=== PATIENT | female | born 1980 | race Caucasian/White ===

== ENCOUNTER 2020-06-16 21:06 | Emergency (ER) | payer OTHER ==
[2020-06-16] MEDS ORDERED: Erythromycin Base 0.5% Oint 1 GM TUBE ONE (22:09)
== END 2020-06-16 22:15 | disposition home or self-care (01) ==
LOC: CSHERS 21:06
DX: B00.59 Other herpesviral disease of eye (principal)
CPT/HCPCS: 99283

== ENCOUNTER 2020-06-18 02:22 | Emergency (ER) | payer OTHER ==
[2020-06-18] MEDS ORDERED: Morphine 4 MG/ML VIAL ONE (03:22)
[2020-06-18] MEDS ORDERED: Clindamycin 150 MG CAP ONE (03:23)
[2020-06-18] MEDS ORDERED: diphenhydrAMINE 25 MG CAP ONE (03:23)
== END 2020-06-18 03:55 | disposition home or self-care (01) ==
LOC: CSHERS 02:22
DX: L03.213 Periorbital cellulitis (principal); M79.7 Fibromyalgia; F17.290 Nicotine dependence, other tobacco product, uncomplicated; Z79.899 Other long term (current) drug therapy
CPT/HCPCS: 96372; 99283; J2270; Q0163

== ENCOUNTER 2020-07-24 06:28 | Emergency (ER) | payer OTHER ==
[2020-07-24] MEDS ORDERED: Morphine 4 MG/ML VIAL ONE (07:30)
[2020-07-24] MEDS ORDERED: Ondansetron PF 4 MG/2 ML Vial ONE (07:30)
[2020-07-24] MEDS ORDERED: Lidocaine/Transparent Dressing 1 EACH KIT ONE (07:30)
[2020-07-24 07:32] LABS: Bilirubin Neg (Negative); Blood, Urine Negative (Negative); Clarity Clear (Clear); Glucose, Urine (Dipstick) Normal (Negative); Ketone, Urine Negative (Negative); Leukocyte Negative (Negative); Nitrite Negative (Negative); Protein, Urine (Dipstick) Negative (Neg-Trace); Urobilinogen Normal mg/dL (Less than 2)
[2020-07-24 07:37] LABS: Pregnancy Test - Urine (BHCG) Negative (Negative)
[2020-07-24 07:38] LABS: Pregu Control Background? CLEAR/WHITE (CLR/WHITE); Pregu Control Bar Appear? YES (CONTROL BAR)
[2020-07-24] MEDS ORDERED: diphenhydrAMINE 50 MG/ML VIAL ONE (08:15)
[2020-07-24 08:29] LABS: ALT (SGPT) 22 U/L (8-55); AST (SGOT) 24 U/L (5-34); Albumin 3.5 g/dL (3.5-5.0); Alkaline Phosphatase 68 U/L (40-110); Anion Gap 19 mmol/L (10-20); BUN (Urea Nitrogen) 5 mg/dL (7.0-18.7); Bilirubin, Total 0.5 mg/dL (0.2-1.2); Calc. Creatinine Clearance 0 mL/min (70-130); Calcium 9.2 mg/dL (7.8-10.44); Carbon Dioxide 21 mmol/L (22-29); Chloride 103 mmol/L (98-107); Globulin 3.4 g/dL (2.4-3.5); Glucose 90 mg/dL (70-105); Potassium 4.8 mmol/L (3.5-5.1); Protein, Total 6.9 g/dL (6.0-8.3); Sodium 138 mmol/L (136-145)
[2020-07-24] MEDS ORDERED: Midazolam HCl 2 mg/2 ml Vial ONE (08:54)
[2020-07-24] MEDS ORDERED: Lidocaine 1% w/Epinephrine 1:100K 20 ML VIAL ONE (08:54)
[2020-07-24 09:04] LABS: #Eosinphils 0.3 10x3/uL (0.0-0.5); #Monocytes 0.8 10x3/uL (0.0-1.1); #Neutrophils 10.9 10x3/uL (1.5-8.4); %Basophils 0.3 % (0.0-2.0); %Eosinophils 2.3 % (0.0-6.0); %Lymphocytes 14.9 % (18.0-47.0); %Monocytes 5.4 % (0.0-10.0); %Neutrophils 76.6 % (40.0-75.0); Hemoglobin 11.3 g/dL (12.0-15.5); Mean Corpuscular HGB CONC 32.1 g/dL (32.0-36.0); Mean Corpuscular Hemoglobin 28.1 pg (27.0-33.0); Mean Corpuscular Volume 87.6 fl (81.6-98.3); Mean Platelet Volume 8.5 fl (7.4-10.4); Platelet Count 280 10x3/uL (150-450); RBC Distribution Width 13.6 % (11.5-14.5); Red Blood Cell (RBC) Count 4.02 10x6/uL (3.90-5.03); White Blood Cell (WBC) Count 14.2 10x3/uL (3.5-10.5)
[2020-07-24] MEDS ORDERED: HYDROmorphone 0.5 MG/0.5 ML SYRINGE ONE (09:15)
== END 2020-07-24 10:08 | disposition home or self-care (01) ==
LOC: CSHERS 06:28
DX: N75.1 Abscess of Bartholin's gland (principal); M79.7 Fibromyalgia; K50.90 Crohn's disease, unspecified, without complications; Z79.899 Other long term (current) drug therapy
CPT/HCPCS: 36415; 56420; 74177; 80053; 81003; 81025; 85025; 87070; 87077; 87186; 87205; 93005; 93010; 96374; 96375; J1170; J1200; J2250; J2270; J2405

== ENCOUNTER 2020-07-25 10:00 | Observation (INO) | payer OTHER ==
[2020-07-25] MEDS ORDERED: Promethazine HCl 25 MG/ML VIAL ONE (10:38)
[2020-07-25] MEDS ORDERED: Ketorolac Tromethamine 30 MG/ML VIAL ONE (10:38)
[2020-07-25] MEDS ORDERED: Morphine 4 MG/ML VIAL ONE ×2 (11:19→14:19)
[2020-07-25] MEDS ORDERED: Haloperidol Lactate 5 MG/ML VIAL ONE (12:52)
[2020-07-25] MEDS ORDERED: Ondansetron ODT 4 MG TAB PO PRN (14:10)
[2020-07-25] MEDS ORDERED: Promethazine HCl 25 MG SUPP PR PRN (14:15)
[2020-07-25] MEDS ORDERED: Sodium Chloride 0.9% 1,000 ML IV SCH (14:45)
[2020-07-25 14:54] LABS: #Eosinphils 0.1 10x3/uL (0.0-0.5); #Monocytes 0.7 10x3/uL (0.0-1.1); #Neutrophils 9.2 10x3/uL (1.5-8.4); %Basophils 0.3 % (0.0-2.0); %Eosinophils 0.5 % (0.0-6.0); %Monocytes 6.1 % (0.0-10.0); %Neutrophils 81.7 % (40.0-75.0); Hemoglobin 12.3 g/dL (12.0-15.5); Mean Corpuscular HGB CONC 33.2 g/dL (32.0-36.0); Mean Corpuscular Hemoglobin 28.1 pg (27.0-33.0); Mean Corpuscular Volume 84.9 fl (81.6-98.3); Mean Platelet Volume 8.4 fl (7.4-10.4); Platelet Count 276 10x3/uL (150-450); Red Blood Cell (RBC) Count 4.37 10x6/uL (3.90-5.03); White Blood Cell (WBC) Count 11.2 10x3/uL (3.5-10.5)
[2020-07-25 14:57] LABS: ALT (SGPT) 21 U/L (8-55); AST (SGOT) 18 U/L (5-34); Albumin 3.5 g/dL (3.5-5.0); Alkaline Phosphatase 73 U/L (40-110); Anion Gap 16 mmol/L (10-20); BUN (Urea Nitrogen) 5 mg/dL (7.0-18.7); Bilirubin, Total 0.5 mg/dL (0.2-1.2); Calc. Creatinine Clearance 0 mL/min (70-130); Calcium 9.4 mg/dL (7.8-10.44); Carbon Dioxide 25 mmol/L (22-29); Chloride 100 mmol/L (98-107); Globulin 3.5 g/dL (2.4-3.5); Glucose 94 mg/dL (70-105); Potassium 3.9 mmol/L (3.5-5.1); Sodium 137 mmol/L (136-145)
[2020-07-25 14:59] LABS: Lactic Acid 1.3 mmol/L (0.5-2.2)
[2020-07-25] MEDS ORDERED: PENTOSAN POLYSULFATE SODIUM 100 MG PO SCH (15:00)
[2020-07-25 15:05] LABS: BHCG - Serum Negative (NEGATIVE); Pregs Control Background? CLEAR/WHITE (CLR/WHITE); Pregs Control Bar Appear? YES (CONTROL BAR)
[2020-07-25] MEDS ORDERED: Gabapentin 300 MG CAP PO SCH ×4 (17:00→21:00)
[2020-07-25] MEDS: Morphine 4 MG/ML VIAL SLOW IVP PRN ×2 (17:04→22:02)
[2020-07-25 17:35] VITALS: BMI 31.5
[2020-07-25] MEDS ORDERED: Acetaminophen 500 MG TAB PO PRN (17:46)
[2020-07-25] MEDS ORDERED: Clindamycin/D5W 900 mg/50 ml Premix Bag ONE (18:09)
[2020-07-25] MEDS: Clindamycin/D5W 900 MG in Premix Bag 1 BAG IVPB SCH (18:25)
[2020-07-25] MEDS ORDERED: Amitriptyline HCl 10 MG TAB PO SCH (21:00)
[2020-07-25] MEDS ORDERED: diphenhydrAMINE 50 MG/ML VIAL IVP SCH (22:00)
[2020-07-25] MEDS: diphenhydrAMINE 50 MG CAP PO PRN (22:03)
[2020-07-26] MEDS: Morphine 4 MG/ML VIAL SLOW IVP PRN ×2 (02:42→07:11)
[2020-07-26] MEDS: Clindamycin/D5W 900 MG in Premix Bag 1 BAG IVPB SCH (03:02)
[2020-07-26] MEDS: diphenhydrAMINE 50 MG CAP PO PRN (03:04)
[2020-07-26 04:50] LABS: SARS-CoV-2 PCR by NAA Not Detected (NotDetected)
[2020-07-26 07:31] LABS: #Eosinphils 0.5 10x3/uL (0.0-0.5); #Monocytes 0.7 10x3/uL (0.0-1.1); #Neutrophils 3.3 10x3/uL (1.5-8.4); %Basophils 0.6 % (0.0-2.0); %Eosinophils 7.7 % (0.0-6.0); %Monocytes 9.2 % (0.0-10.0); %Neutrophils 46.9 % (40.0-75.0); Hemoglobin 11.1 g/dL (12.0-15.5); Mean Corpuscular HGB CONC 32.7 g/dL (32.0-36.0); Mean Corpuscular Volume 85.6 fl (81.6-98.3); Mean Platelet Volume 8.9 fl (7.4-10.4); Platelet Count 230 10x3/uL (150-450); Red Blood Cell (RBC) Count 3.96 10x6/uL (3.90-5.03)
[2020-07-26] MEDS ORDERED: HYDROcodone/Acetaminophen 5/325 mg Tablet PO SCH (07:33)
[2020-07-26] MEDS ORDERED: HYDROcodone/Acetaminophen 10/325 mg Tablet PO SCH (07:45)
[2020-07-26 07:48] LABS: Anion Gap 17 mmol/L (10-20); BUN (Urea Nitrogen) 6 mg/dL (7.0-18.7); Calc. Creatinine Clearance 169 mL/min (70-130); Calcium 8.7 mg/dL (7.8-10.44); Carbon Dioxide 20 mmol/L (22-29); Chloride 105 mmol/L (98-107); Glucose 103 mg/dL (70-105); Potassium 4.3 mmol/L (3.5-5.1); Sodium 138 mmol/L (136-145)
[2020-07-26 08:01] VITALS: BP 126/81; TEMP 97.1
[2020-07-26] MEDS ORDERED: Non-Formulary Medication 1 EACH (Citalopram [Celexa] 10 MG Tab) PO SCH (09:00)
[2020-07-26] MEDS ORDERED: Gabapentin 300 MG CAP PO SCH ×2 (09:00→17:00)
[2020-07-26] MEDS ORDERED: CITALOPRAM 20 MG PO SCH (09:00)
== END 2020-07-26 09:40 | disposition home or self-care (01) ==
LOC: CSHERS 10:00 → INTOOBSV 16:48 → CSHPED 16:48
PROVIDERS: ADMIT Obstetrics & Gynecology; ATTEND Obstetrics & Gynecology
DX: N76.4 Abscess of vulva (principal); Z79.899 Other long term (current) drug therapy; K50.90 Crohn's disease, unspecified, without complications; N30.10 Interstitial cystitis (chronic) without hematuria; M79.7 Fibromyalgia; Z90.49 Acquired absence of other specified parts of digestive tract; F32.9 Major depressive disorder, single episode, unspecified; Z20.822 Contact with and (suspected) exposure to COVID-19
CPT/HCPCS: 36415; 80048; 80053; 83605; 84703; 85025; 87040; 87149; 87635; 96374; 96375; 96376; 99284; G0378; J1630; J1885; J2270; J2550; J3490; U0003; U0005

== ENCOUNTER 2020-11-23 18:26 | Emergency (ER) | payer OTHER ==
[2020-11-23] MEDS ORDERED: Morphine 4 MG/ML VIAL ONE (20:35)
[2020-11-23 20:39] LABS: #Basophils 0.1 10x3/uL (0.0-0.2); #Eosinphils 0.5 10x3/uL (0.0-0.5); #Monocytes 0.6 10x3/uL (0.0-1.1); #Neutrophils 5.6 10x3/uL (1.5-8.4); %Basophils 0.6 % (0.0-2.0); %Eosinophils 5.9 % (0.0-6.0); %Lymphocytes 23.1 % (18.0-47.0); %Monocytes 7.1 % (0.0-10.0); %Neutrophils 63.1 % (40.0-75.0); Hemoglobin 12.2 g/dL (12.0-15.5); Mean Corpuscular HGB CONC 32.7 g/dL (32.0-36.0); Mean Corpuscular Hemoglobin 27.4 pg (27.0-33.0); Mean Corpuscular Volume 83.8 fl (81.6-98.3); Mean Platelet Volume 8.4 fl (7.4-10.4); Platelet Count 270 10x3/uL (150-450); RBC Distribution Width 13.8 % (11.5-14.5); Red Blood Cell (RBC) Count 4.45 10x6/uL (3.90-5.03); White Blood Cell (WBC) Count 8.8 10x3/uL (3.5-10.5)
[2020-11-23 20:53] LABS: ALT (SGPT) 41 U/L (8-55); AST (SGOT) 36 U/L (5-34); Albumin 3.9 g/dL (3.5-5.0); Alkaline Phosphatase 62 U/L (40-110); Anion Gap 15 mmol/L (10-20); BUN (Urea Nitrogen) 6 mg/dL (7.0-18.7); Bilirubin, Total 0.6 mg/dL (0.2-1.2); Calc. Creatinine Clearance 0 mL/min (70-130); Calcium 9.8 mg/dL (7.8-10.44); Carbon Dioxide 23 mmol/L (22-29); Chloride 105 mmol/L (98-107); Globulin 3.3 g/dL (2.4-3.5); Glucose 96 mg/dL (70-105); Potassium 3.9 mmol/L (3.5-5.1); Protein, Total 7.2 g/dL (6.0-8.3); Sodium 139 mmol/L (136-145)
[2020-11-23 20:54] LABS: CRP (Inflammatory) Less than 0.50 mg/dL (= or < 0.5); Lipase 45 U/L (8-78)
[2020-11-23] MEDS ORDERED: Promethazine HCl 25 MG/ML VIAL ONE (21:25)
[2020-11-23] MEDS ORDERED: Promethazine 25 MG TAB ONE (23:34)
[2020-11-24 00:55] LABS: SARS-CoV-2 NAA Rapid Test Not Detected (NotDetected)
== END 2020-11-24 00:55 | disposition home or self-care (01) ==
LOC: CSHERS 18:26
DX: R11.2 Nausea with vomiting, unspecified (principal); R10.9 Unspecified abdominal pain; Z20.822 Contact with and (suspected) exposure to COVID-19
CPT/HCPCS: 0240U; 80053; 83605; 83690; 85025; 86140; 93005; 96374; 96375; J2270; J2550; Q0169

== ENCOUNTER 2021-02-20 17:00 | Emergency (ER) | payer OTHER ==
[2021-02-20] MEDS ORDERED: Boostrix 0.5 ML (Tdap) VIAL ONE (18:26)
[2021-02-20] MEDS ORDERED: Bacitracin 1 PK ONE (18:40)
== END 2021-02-20 18:55 | disposition home or self-care (01) ==
LOC: CSHERS 17:00
DX: S80.12XA Contusion of left lower leg, initial encounter (principal); S60.222A Contusion of left hand, initial encounter; S50.812A Abrasion of left forearm, initial encounter; S80.211A Abrasion, right knee, initial encounter; W01.0XXA Fall on same level from slipping, tripping and stumbling without subsequent striking against object, initial encounter
CPT/HCPCS: 90471; 90715

== ENCOUNTER 2021-07-27 22:17 | Inpatient (IN) | payer OTHER ==
[~2021-07-27 22:17] MED LIST: Iopamidol 300 61% 100 ML VIAL FS ONE
[2021-07-27 23:12] LABS: #Basophils 0.1 10x3/uL (0.0-0.2); #Eosinphils 0.4 10x3/uL (0.0-0.5); #Monocytes 0.5 10x3/uL (0.0-1.1); #Neutrophils 6.7 10x3/uL (1.5-8.4); %Basophils 0.7 % (0.0-2.0); %Eosinophils 3.4 % (0.0-6.0); %Neutrophils 64.6 % (40.0-75.0); Hemoglobin 13.7 g/dL (12.0-15.5); Mean Corpuscular HGB CONC 33.1 g/dL (32.0-36.0); Mean Corpuscular Volume 81.7 fl (81.6-98.3); Mean Platelet Volume 8.4 fl (7.4-10.4); Platelet Count 341 10x3/uL (150-450); RBC Distribution Width 13.9 % (11.5-14.5); Red Blood Cell (RBC) Count 5.07 10x6/uL (3.90-5.03); White Blood Cell (WBC) Count 10.3 10x3/uL (3.5-10.5)
[2021-07-27 23:16] LABS: BHCG - Serum Negative (NEGATIVE); Pregs Control Background? CLEAR/WHITE (CLR/WHITE); Pregs Control Bar Appear? YES (CONTROL BAR)
[2021-07-27 23:22] LABS: ALT (SGPT) 31 U/L (8-55); AST (SGOT) 29 U/L (5-34); Albumin 4.2 g/dL (3.5-5.0); Alkaline Phosphatase 66 U/L (40-110); Anion Gap 14 mmol/L (10-20); BUN (Urea Nitrogen) 6 mg/dL (7.0-18.7); Bilirubin, Total 0.3 mg/dL (0.2-1.2); Calc. Creatinine Clearance 0 mL/min (70-130); Calcium 9.4 mg/dL (7.8-10.44); Carbon Dioxide 24 mmol/L (22-29); Chloride 105 mmol/L (98-107); Globulin 3.3 g/dL (2.4-3.5); Glucose 103 mg/dL (70-105); Potassium 3.9 mmol/L (3.5-5.1); Protein, Total 7.5 g/dL (6.0-8.3); Sodium 139 mmol/L (136-145)
[2021-07-27] MEDS ORDERED: diphenhydrAMINE 50 MG/ML VIAL ONE (23:22)
[2021-07-27] MEDS ORDERED: Haloperidol Lactate 5 MG/ML VIAL ONE (23:22)
[2021-07-27] MEDS ORDERED: Morphine 4 MG/ML VIAL ONE (23:22)
[2021-07-27] MEDS ORDERED: Ondansetron PF 4 MG/2 ML Vial ONE (23:22)
[2021-07-28] MEDS ORDERED: Lorazepam 2 MG/ML VIAL ONE (00:19)
[2021-07-28] MEDS ORDERED: Morphine 4 MG/ML VIAL ONE ×2 (00:19→03:27)
[2021-07-28 01:57] LABS: Bilirubin Neg (Negative); Blood, Urine Negative (Negative); Clarity Clear (Clear); Glucose, Urine (Dipstick) Normal (Negative); Ketone, Urine Negative (Negative); Leukocyte Negative (Negative); Nitrite Negative (Negative); Protein, Urine (Dipstick) Negative (Neg-Trace); Urobilinogen Normal mg/dL (Less than 2)
[2021-07-28 02:00] LABS: Pregnancy Test - Urine (BHCG) Negative (Negative); Pregu Control Background? CLEAR/WHITE (CLR/WHITE); Pregu Control Bar Appear? YES (CONTROL BAR)
[2021-07-28] MEDS ORDERED: Promethazine HCl 25 MG/ML VIAL ONE ×2 (02:50→09:22)
[2021-07-28] MEDS ORDERED: methylPREDNISolone Sod Succ/PF 125 MG/2 ML VIAL ONE ×2 (02:50→02:58)
[2021-07-28 04:08] VITALS: BMI 31.9
[2021-07-28] MEDS ORDERED: Acetaminophen 325 MG TAB PO PRN (04:27)
[2021-07-28] MEDS ORDERED: HYDROcodone/Acetaminophen 5/325 mg Tablet PO PRN (04:27)
[2021-07-28] MEDS: Ondansetron PF 4 MG/2 ML Vial IVP PRN ×3 (04:53→18:03)
[2021-07-28] MEDS: Morphine 2 MG/ML VIAL SLOW IVP PRN ×3 (04:53→21:02)
[2021-07-28] MEDS: diphenhydrAMINE 50 MG CAP PO PRN ×2 (04:56→21:01)
[2021-07-28] MEDS: Calcium Carbonate 500 MG ChewTAB PO PRN ×2 (04:56→12:41)
[2021-07-28] MEDS: Lactated Ringer's 1,000 ML IV SCH ×2 (05:18→16:47)
[2021-07-28] MEDS ORDERED: methylPREDNISolone Sod Succ/PF 125 MG/2 ML VIAL IVP SCH (09:00)
[2021-07-28] MEDS ORDERED: azaTHIOprine 50 MG TAB PO SCH (09:00)
[2021-07-28] MEDS: Famotidine/PF 20 mg/2ml Vial SLOW IVP SCH ×2 (09:10→21:03)
[2021-07-28] MEDS: methylPREDNISolone Sod Succ 40 MG VIAL IVP SCH ×2 (09:12→18:01)
[2021-07-28] MEDS: Gabapentin 300 MG CAP PO SCH ×2 (09:30→21:01)
[2021-07-28] MEDS: DULoxetine 30 MG CAP PO SCH (09:40)
[2021-07-28] MEDS: Enoxaparin Sodium 40 MG/0.4 ML SYRINGE SC SCH (11:47)
[2021-07-28] MEDS ORDERED: Morphine 2 MG/ML VIAL SLOW IVP PRN (11:58)
[2021-07-28] MEDS ORDERED: Morphine 2 MG/ML VIAL SLOW IVP SCH (12:00)
[2021-07-28] MEDS: HYDROcodone/Acetaminophen 10/325 mg Tablet PO PRN ×2 (12:39→16:45)
[2021-07-28] MEDS ORDERED: Morphine 4 MG/ML VIAL SLOW IVP PRN (18:46)
[2021-07-28] MEDS: Amitriptyline HCl 10 MG TAB PO SCH (21:02)
[2021-07-28] MEDS: Promethazine HCl 12.5 MG in Sodium Chloride 0.9% 50 ML IVPB PRN (21:33)
[2021-07-29] MEDS: methylPREDNISolone Sod Succ 40 MG VIAL IVP SCH ×3 (01:01→09:47)
[2021-07-29] MEDS: Lactated Ringer's 1,000 ML IV SCH (01:01)
[2021-07-29] MEDS: Ondansetron PF 4 MG/2 ML Vial IVP PRN ×3 (01:02→20:43)
[2021-07-29] MEDS: HYDROcodone/Acetaminophen 10/325 mg Tablet PO PRN ×5 (01:02→20:43)
[2021-07-29] MEDS: Morphine 2 MG/ML VIAL SLOW IVP PRN ×2 (03:06→08:59)
[2021-07-29 05:57] LABS: #Monocytes 0.3 10x3/uL (0.0-1.1); #Neutrophils 9.3 10x3/uL (1.5-8.4); %Basophils 0.1 % (0.0-2.0); %Lymphocytes 12.5 % (18.0-47.0); %Monocytes 2.6 % (0.0-10.0); %Neutrophils 84.5 % (40.0-75.0); Hemoglobin 12.3 g/dL (12.0-15.5); Mean Corpuscular HGB CONC 34.4 g/dL (32.0-36.0); Mean Corpuscular Hemoglobin 27.7 pg (27.0-33.0); Mean Corpuscular Volume 80.6 fl (81.6-98.3); Mean Platelet Volume 8.7 fl (7.4-10.4); Platelet Count 318 10x3/uL (150-450); RBC Distribution Width 13.7 % (11.5-14.5); Red Blood Cell (RBC) Count 4.44 10x6/uL (3.90-5.03)
[2021-07-29 06:09] LABS: Anion Gap 15 mmol/L (10-20); BUN (Urea Nitrogen) 7 mg/dL (7.0-18.7); CRP (Inflammatory) Less than 0.50 mg/dL (= or < 0.5); Calc. Creatinine Clearance 167 mL/min (70-130); Calcium 9.7 mg/dL (7.8-10.44); Carbon Dioxide 24 mmol/L (22-29); Chloride 104 mmol/L (98-107); Glucose 111 mg/dL (70-105); Magnesium 1.7 mg/dL (1.6-2.6); Potassium 4.3 mmol/L (3.5-5.1); Sodium 139 mmol/L (136-145)
[2021-07-29 06:11] LABS: ALT (SGPT) 24 U/L (8-55); AST (SGOT) 18 U/L (5-34); Albumin 3.9 g/dL (3.5-5.0); Alkaline Phosphatase 62 U/L (40-110); Bilirubin, Direct 0.2 mg/dL (0.1-0.3); Bilirubin, Total 0.5 mg/dL (0.2-1.2); Protein, Total 6.9 g/dL (6.0-8.3)
[2021-07-29] MEDS: PENTOSAN POLYSULFATE SODIUM 100 MG PO SCH ×4 (08:59→17:08)
[2021-07-29] MEDS: Gabapentin 300 MG CAP PO SCH ×2 (09:06→20:43)
[2021-07-29] MEDS: DULoxetine 30 MG CAP PO SCH (09:06)
[2021-07-29] MEDS: Famotidine/PF 20 mg/2ml Vial SLOW IVP SCH ×2 (09:06→20:43)
[2021-07-29] MEDS: Enoxaparin Sodium 40 MG/0.4 ML SYRINGE SC SCH ×2 (09:06→12:47)
[2021-07-29] MEDS: Promethazine HCl 12.5 MG in Sodium Chloride 0.9% 50 ML IVPB PRN ×2 (10:27→22:02)
[2021-07-29] MEDS: Amitriptyline HCl 10 MG TAB PO SCH (20:43)
[2021-07-29] MEDS: diphenhydrAMINE 50 MG CAP PO PRN (22:10)
[2021-07-30] MEDS: HYDROcodone/Acetaminophen 10/325 mg Tablet PO PRN ×6 (00:54→23:53)
[2021-07-30 05:32] LABS: #Basophils 0.1 10x3/uL (0.0-0.2); #Eosinphils 0.2 10x3/uL (0.0-0.5); #Monocytes 0.4 10x3/uL (0.0-1.1); #Neutrophils 4.1 10x3/uL (1.5-8.4); %Basophils 0.6 % (0.0-2.0); %Eosinophils 2.1 % (0.0-6.0); %Lymphocytes 42.6 % (18.0-47.0); %Monocytes 5.1 % (0.0-10.0); %Neutrophils 49.2 % (40.0-75.0); Hemoglobin 11.3 g/dL (12.0-15.5); Mean Corpuscular HGB CONC 32.8 g/dL (32.0-36.0); Mean Corpuscular Volume 82.3 fl (81.6-98.3); Mean Platelet Volume 8.6 fl (7.4-10.4); Platelet Count 292 10x3/uL (150-450); Red Blood Cell (RBC) Count 4.19 10x6/uL (3.90-5.03); White Blood Cell (WBC) Count 8.4 10x3/uL (3.5-10.5)
[2021-07-30 05:37] LABS: Anion Gap 13 mmol/L (10-20); BUN (Urea Nitrogen) 7 mg/dL (7.0-18.7); Calc. Creatinine Clearance 148 mL/min (70-130); Calcium 8.8 mg/dL (7.8-10.44); Carbon Dioxide 27 mmol/L (22-29); Chloride 103 mmol/L (98-107); Glucose 119 mg/dL (70-105); Magnesium 1.6 mg/dL (1.6-2.6); Potassium 3.2 mmol/L (3.5-5.1); Sodium 140 mmol/L (136-145)
[2021-07-30] MEDS: PENTOSAN POLYSULFATE SODIUM 100 MG PO SCH ×3 (06:43→16:44)
[2021-07-30] MEDS ORDERED: Magnesium 2 GM/50 ML(in water) 2 GM in Premix Bag 1 BAG IVPB SCH (07:30)
[2021-07-30] MEDS ORDERED: Potassium Chloride 20 MEQ TAB PO SCH (07:30)
[2021-07-30] MEDS: DULoxetine 30 MG CAP PO SCH (09:16)
[2021-07-30] MEDS: Enoxaparin Sodium 40 MG/0.4 ML SYRINGE SC SCH (09:16)
[2021-07-30] MEDS: Gabapentin 300 MG CAP PO SCH ×2 (09:17→21:37)
[2021-07-30] MEDS: Hyoscyamine Sulfate SL 0.125 mg Tablet PO SCH ×2 (11:29→16:44)
[2021-07-30] MEDS ORDERED: Ondansetron ORAL SOLN. 4 MG/5 ML UDCUP PO PRN (11:55)
[2021-07-30] MEDS ORDERED: hydrOXYzine 25 MG TAB PO SCH (12:00)
[2021-07-30] MEDS ORDERED: Magnesium Oxide 400 MG TAB PO SCH (12:00)
[2021-07-30] MEDS ORDERED: Ondansetron ODT 4 MG TAB PO PRN (12:43)
[2021-07-30] MEDS ORDERED: Senokot S 8.6-50 MG TAB PO SCH (15:30)
[2021-07-30] MEDS: Polyethylene Glycol 3350 17 GM Packet PO SCH ×2 (16:43→16:44)
[2021-07-30] MEDS: Magnesium Oxide 400 MG TAB PO SCH (21:33)
[2021-07-30] MEDS: Senokot S 8.6-50 MG TAB PO SCH (21:34)
[2021-07-30] MEDS: Amitriptyline HCl 10 MG TAB PO SCH (21:44)
[2021-07-31] MEDS: HYDROcodone/Acetaminophen 10/325 mg Tablet PO PRN ×2 (04:32→09:25)
[2021-07-31 05:40] LABS: Anion Gap 14 mmol/L (10-20); BUN (Urea Nitrogen) 6 mg/dL (7.0-18.7); Calc. Creatinine Clearance 171 mL/min (70-130); Calcium 8.9 mg/dL (7.8-10.44); Carbon Dioxide 27 mmol/L (22-29); Chloride 104 mmol/L (98-107); Glucose 84 mg/dL (70-105); Magnesium 1.8 mg/dL (1.6-2.6); Potassium 3.9 mmol/L (3.5-5.1); Sodium 141 mmol/L (136-145)
[2021-07-31 06:03] LABS: #Basophils 0.1 10x3/uL (0.0-0.2); #Eosinphils 0.2 10x3/uL (0.0-0.5); #Monocytes 0.4 10x3/uL (0.0-1.1); #Neutrophils 3.1 10x3/uL (1.5-8.4); %Basophils 0.9 % (0.0-2.0); %Eosinophils 3.1 % (0.0-6.0); %Lymphocytes 45.3 % (18.0-47.0); %Monocytes 5.6 % (0.0-10.0); %Neutrophils 44.8 % (40.0-75.0); Hemoglobin 12.2 g/dL (12.0-15.5); Mean Corpuscular HGB CONC 33.3 g/dL (32.0-36.0); Mean Corpuscular Hemoglobin 27.1 pg (27.0-33.0); Mean Corpuscular Volume 81.3 fl (81.6-98.3); Mean Platelet Volume 9.1 fl (7.4-10.4); Platelet Count 286 10x3/uL (150-450); RBC Distribution Width 13.8 % (11.5-14.5); White Blood Cell (WBC) Count 6.8 10x3/uL (3.5-10.5)
[2021-07-31 06:19] LABS: SARS-CoV-2 NAA Rapid Test Not Detected (NotDetected)
[2021-07-31 08:57] VITALS: BP 128/80; TEMP 97.1
[2021-07-31] MEDS ORDERED: Polyethylene Glycol 3350 17 GM Packet PO SCH (09:00)
[2021-07-31] MEDS: DULoxetine 30 MG CAP PO SCH (09:25)
[2021-07-31] MEDS: Enoxaparin Sodium 40 MG/0.4 ML SYRINGE SC SCH (09:25)
[2021-07-31] MEDS: Gabapentin 300 MG CAP PO SCH (09:26)
[2021-07-31] MEDS: Senokot S 8.6-50 MG TAB PO SCH (09:27)
[2021-07-31] MEDS: Hyoscyamine Sulfate SL 0.125 mg Tablet PO SCH (09:27)
[2021-07-31] MEDS: Magnesium Oxide 400 MG TAB PO SCH (09:27)
[2021-07-31] MEDS: PENTOSAN POLYSULFATE SODIUM 100 MG PO SCH (09:27)
== END 2021-07-31 10:37 | disposition home or self-care (01) | DRG 392 ==
LOC: CSHERS 22:17 → CSHTELE 07-28 04:00 → OBSVTOIN 07-28 04:27
PROVIDERS: ADMIT Student in an Organized Health Care Education/Training Program; ATTEND Family Medicine
DX: K59.00 Constipation, unspecified (principal); K50.10 Crohn's disease of large intestine without complications; F11.20 Opioid dependence, uncomplicated; F32.A Depression, unspecified; N30.10 Interstitial cystitis (chronic) without hematuria; F41.9 Anxiety disorder, unspecified; F12.10 Cannabis abuse, uncomplicated; R19.5 Other fecal abnormalities; M79.7 Fibromyalgia; Z88.1 Allergy status to other antibiotic agents; Z88.8 Allergy status to other drugs, medicaments and biological substances; Z90.49 Acquired absence of other specified parts of digestive tract; Z98.890 Other specified postprocedural states; Z88.5 Allergy status to narcotic agent; Z79.899 Other long term (current) drug therapy
CPT/HCPCS: 36415; 74177; 80048; 80053; 80076; 81003; 81025; 83630; 83735; 84703; 85025; 85652; 86140; 87045; 87046; 87081; 87177; 87324; 87427; 87449; 96374; 96375; 96376; J1200; J1630; J1650; J2060; J2270; J2405; J2550; J2920; J2930; J7120; Q0162; Q9967; S0028; U0002

== ENCOUNTER 2021-09-18 17:35 | Emergency (ER) | payer OTHER ==
[2021-09-18] MEDS ORDERED: Ondansetron PF 4 MG/2 ML Vial ONE (18:35)
[2021-09-18] MEDS ORDERED: Dicyclomine 20 MG/2 ML VIAL ONE (18:35)
[2021-09-18] MEDS ORDERED: HYDROmorphone 0.5 MG/0.5 ML SYRINGE ONE (18:35)
[2021-09-18] MEDS ORDERED: Pantoprazole 40 MG VIAL ONE (18:36)
[2021-09-18 18:38] LABS: #Basophils 0.1 10x3/uL (0.0-0.2); #Eosinphils 0.3 10x3/uL (0.0-0.5); #Monocytes 0.5 10x3/uL (0.0-1.1); %Basophils 0.8 % (0.0-2.0); %Lymphocytes 32.6 % (18.0-47.0); %Monocytes 7.4 % (0.0-10.0); %Neutrophils 54.8 % (40.0-75.0); Hemoglobin 11.1 g/dL (12.0-15.5); Mean Corpuscular HGB CONC 33.2 g/dL (32.0-36.0); Mean Corpuscular Hemoglobin 26.7 pg (27.0-33.0); Mean Corpuscular Volume 80.5 fl (81.6-98.3); Mean Platelet Volume 8.7 fl (7.4-10.4); Platelet Count 426 10x3/uL (150-450); RBC Distribution Width 13.9 % (11.5-14.5); Red Blood Cell (RBC) Count 4.15 10x6/uL (3.90-5.03); White Blood Cell (WBC) Count 7.2 10x3/uL (3.5-10.5)
[2021-09-18 18:46] LABS: ALT (SGPT) 21 U/L (8-55); AST (SGOT) 21 U/L (5-34); Albumin 3.8 g/dL (3.5-5.0); Alkaline Phosphatase 62 U/L (40-110); Anion Gap 15 mmol/L (10-20); BUN (Urea Nitrogen) 7 mg/dL (7.0-18.7); Bilirubin, Total 0.2 mg/dL (0.2-1.2); Calc. Creatinine Clearance 0 mL/min (70-130); Calcium 9.2 mg/dL (7.8-10.44); Carbon Dioxide 25 mmol/L (22-29); Chloride 101 mmol/L (98-107); Globulin 3.1 g/dL (2.4-3.5); Glucose 85 mg/dL (70-105); Lipase 32 U/L (8-78); Protein, Total 6.9 g/dL (6.0-8.3); Sodium 138 mmol/L (136-145)
[2021-09-18] MEDS ORDERED: HYDROcodone/Acetaminophen 10/325 mg Tablet ONE (19:39)
== END 2021-09-18 19:45 | disposition home or self-care (01) ==
LOC: CSHERS 17:35
DX: D64.9 Anemia, unspecified (principal); R10.84 Generalized abdominal pain
CPT/HCPCS: 80053; 83605; 83690; 85025; 86140; 86850; 86900; 86901; 96372; 96374; 96375; C9113; J0500; J1170; J2405

== ENCOUNTER 2021-10-18 06:28 | Emergency (ER) | payer OTHER ==
[2021-10-18 07:33] LABS: #Eosinphils 0.3 10x3/uL (0.0-0.5); #Monocytes 0.5 10x3/uL (0.0-1.1); %Basophils 0.6 % (0.0-2.0); %Eosinophils 3.9 % (0.0-6.0); %Lymphocytes 27.1 % (18.0-47.0); %Monocytes 7.7 % (0.0-10.0); %Neutrophils 60.5 % (40.0-75.0); Hemoglobin 10.5 g/dL (12.0-15.5); Mean Corpuscular HGB CONC 32.4 g/dL (32.0-36.0); Mean Corpuscular Hemoglobin 26.2 pg (27.0-33.0); Mean Corpuscular Volume 80.8 fl (81.6-98.3); Mean Platelet Volume 8.7 fl (7.4-10.4); Platelet Count 290 10x3/uL (150-450); Red Blood Cell (RBC) Count 4.01 10x6/uL (3.90-5.03); White Blood Cell (WBC) Count 6.6 10x3/uL (3.5-10.5)
[2021-10-18] MEDS ORDERED: Haloperidol Lactate 5 MG/ML VIAL ONE (07:35)
[2021-10-18 07:45] LABS: ALT (SGPT) 16 U/L (8-55); AST (SGOT) 18 U/L (5-34); Albumin 3.1 g/dL (3.5-5.0); Alkaline Phosphatase 67 U/L (40-110); Anion Gap 13 mmol/L (10-20); BUN (Urea Nitrogen) 7 mg/dL (7.0-18.7); Bilirubin, Total 0.3 mg/dL (0.2-1.2); Calc. Creatinine Clearance 0 mL/min (70-130); Calcium 8.7 mg/dL (7.8-10.44); Carbon Dioxide 25 mmol/L (22-29); Chloride 105 mmol/L (98-107); Estimated GFR 117; Globulin 2.5 g/dL (2.4-3.5); Glucose 94 mg/dL (70-105); Lipase 39 U/L (8-78); Potassium 3.8 mmol/L (3.5-5.1); Protein, Total 5.6 g/dL (6.0-8.3); Sodium 139 mmol/L (136-145)
[2021-10-18] MEDS ORDERED: Dicyclomine 20 MG/2 ML VIAL ONE (08:48)
[2021-10-18 10:17] LABS: Bilirubin Neg (Negative); Blood, Urine Negative (Negative); Clarity Clear (Clear); Glucose, Urine (Dipstick) Normal (Negative); Ketone, Urine Negative (Negative); Leukocyte Negative (Negative); Nitrite Negative (Negative); Protein, Urine (Dipstick) Negative (Neg-Trace); Urobilinogen Normal mg/dL (Less than 2)
[2021-10-18 10:20] LABS: Pregnancy Test - Urine (BHCG) Negative (Negative); Pregu Control Background? CLEAR/WHITE (CLR/WHITE); Pregu Control Bar Appear? YES (CONTROL BAR)
[2021-10-18 10:23] LABS: Amphetamine Not Detected (NotDetected); Barbiturates Screen Not Detected (NotDetected); Benzodiazepine Screen Not Detected (NotDetected); Cocaine Metabolite Screen Not Detected (NotDetected); Methadone Not Detected (NotDetected); Methamphetamine Not Detected (NotDetected); Opiate Screen Detected (NotDetected); Oxycodone Screen Not Detected (NotDetected); Phencyclidine (PCP) Not Detected (NotDetected); THC/Cannabinoid Screen Detected (NotDetected); Tricyclic Screen Detected (NotDetected)
[2021-10-18] MEDS ORDERED: Lidocaine 1% (PF) 30 ML VIAL ONE (11:24)
== END 2021-10-18 11:54 | disposition home or self-care (01) ==
LOC: CSHERS 06:28
DX: R10.9 Unspecified abdominal pain (principal); G89.29 Other chronic pain; R10.813 Right lower quadrant abdominal tenderness; R10.814 Left lower quadrant abdominal tenderness
CPT/HCPCS: 80053; 80306; 81003; 81025; 83690; 85025; 93005; 96361; 96365; 96372; 96375; J1630; J2001

== ENCOUNTER 2021-10-21 04:38 | Emergency (ER) | payer OTHER | END 2021-10-21 05:00 | disposition left against medical advice (07) | LOC: CSHERS 04:38 | DX: R10.84 Generalized abdominal pain (principal); G89.29 Other chronic pain; R11.2 Nausea with vomiting, unspecified; R19.7 Diarrhea, unspecified | CPT/HCPCS: 99284 ==

== ENCOUNTER 2022-09-09 05:45 | Emergency (ER) | payer OTHER | END 2022-09-09 06:18 | disposition home or self-care (01) | LOC: CSHERS 05:45 | DX: M79.641 Pain in right hand (principal); N64.4 Mastodynia ==

== ENCOUNTER 2022-11-20 22:21 | Emergency (ER) | payer OTHER ==
[2022-11-20] MEDS ORDERED: Ondansetron PF 4 MG/2 ML Vial ONE (23:04)
[2022-11-20] MEDS ORDERED: Famotidine/PF 20 mg/2ml Vial ONE (23:04)
[2022-11-20] MEDS ORDERED: Ketorolac Tromethamine 30 MG/ML VIAL ONE (23:15)
[2022-11-20] MEDS ORDERED: Metoclopramide HCl 10 MG/2 ML VIAL ONE (23:15)
[2022-11-20 23:16] LABS: #Basophils 0.1 10x3/uL (0.0-0.2); #Eosinphils 0.2 10x3/uL (0.0-0.5); #Neutrophils 9.7 10x3/uL (1.5-8.4); %Basophils 0.4 % (0.0-2.0); %Eosinophils 1.3 % (0.0-6.0); %Lymphocytes 13.7 % (18.0-47.0); %Monocytes 7.5 % (0.0-10.0); %Neutrophils 76.7 % (40.0-75.0); Hematocrit 37.9 % (34.9-44.5); Hemoglobin 12.6 g/dL (12.0-15.5); Mean Corpuscular HGB CONC 33.2 g/dL (32.0-36.0); Mean Corpuscular Hemoglobin 28.3 pg (27.0-33.0); Mean Corpuscular Volume 85.2 fl (81.6-98.3); Mean Platelet Volume 9.2 fl (7.4-10.4); Platelet Count 392 10x3/uL (150-450); RBC Distribution Width 14.2 % (11.5-14.5); Red Blood Cell (RBC) Count 4.45 10x6/uL (3.90-5.03); White Blood Cell (WBC) Count 12.7 10x3/uL (3.5-10.5)
[2022-11-20 23:17] LABS: BHCG - Serum Negative (NEGATIVE); Pregs Control Background? CLEAR/WHITE (CLR/WHITE); Pregs Control Bar Appear? YES (CONTROL BAR)
[2022-11-20] MEDS ORDERED: Midazolam HCl 10 mg/2 ml Vial ONE (23:19)
[2022-11-20] MEDS ORDERED: Haloperidol Lactate 5 MG/ML VIAL ONE (23:19)
[2022-11-20 23:20] LABS: ALT (SGPT) 56 U/L (8-55); AST (SGOT) 49 U/L (5-34); Alkaline Phosphatase 53 U/L (40-110); Anion Gap 18 mmol/L (10-20); BUN (Urea Nitrogen) 6 mg/dL (7.0-18.7); Bilirubin, Total 0.3 mg/dL (0.2-1.2); Calc. Creatinine Clearance 0 mL/min (70-130); Calcium 8.8 mg/dL (7.8-10.44); Carbon Dioxide 23 mmol/L (22-29); Chloride 100 mmol/L (98-107); Estimated GFR 76; Globulin 3.1 g/dL (2.4-3.5); Glucose 118 mg/dL (70-105); Lipase 41 U/L (8-78); Potassium 3.2 mmol/L (3.5-5.1); Protein, Total 7.1 g/dL (6.0-8.3); Sodium 138 mmol/L (136-145)
[2022-11-21] MEDS ORDERED: Potassium Chloride 20 MEQ TAB ONE (00:04)
[2022-11-21] MEDS ORDERED: Morphine 4 MG/ML VIAL ONE ×2 (01:18→01:59)
[2022-11-21] MEDS ORDERED: Promethazine HCl 12.5 MG in Sodium Chloride 0.9% 50 ML IVPB SCH (02:00)
[2022-11-21] MEDS ORDERED: Iopamidol 300 61% 100 ML VIAL FS ONE (12:35)
== END 2022-11-21 03:30 | disposition home or self-care (01) ==
LOC: CSHERS 22:21
DX: E87.6 Hypokalemia (principal); R10.84 Generalized abdominal pain; G89.29 Other chronic pain; F12.10 Cannabis abuse, uncomplicated; R11.2 Nausea with vomiting, unspecified
CPT/HCPCS: 74177; 80053; 83690; 84703; 85025; 93005; 96374; 96375; 96376; J1630; J1885; J2250; J2270; J2405; J2550; J2765; J3480; J7030; Q9967; S0028

== ENCOUNTER 2022-11-25 22:05 | Emergency (ER) | payer OTHER ==
[2022-11-25] MEDS ORDERED: diphenhydrAMINE 50 MG/ML VIAL ONE (23:24)
[2022-11-25] MEDS ORDERED: Haloperidol Lactate 5 MG/ML VIAL ONE (23:24)
[2022-11-25] MEDS ORDERED: Lorazepam 2 MG/ML VIAL ONE (23:24)
[2022-11-25 23:39] LABS: #Basophils 0.1 10x3/uL (0.0-0.2); #Eosinphils 0.1 10x3/uL (0.0-0.5); #Monocytes 0.6 10x3/uL (0.0-1.1); #Neutrophils 5.5 10x3/uL (1.5-8.4); %Basophils 0.7 % (0.0-2.0); %Eosinophils 1.5 % (0.0-6.0); %Lymphocytes 29.4 % (18.0-47.0); %Monocytes 7.1 % (0.0-10.0); %Neutrophils 61.1 % (40.0-75.0); Hematocrit 37.4 % (34.9-44.5); Hemoglobin 12.7 g/dL (12.0-15.5); Mean Corpuscular Volume 94.2 fl (81.6-98.3); Mean Platelet Volume 11.3 fl (7.4-10.4); Platelet Count 236 10x3/uL (150-450); RBC Distribution Width 12.8 % (11.5-14.5); Red Blood Cell (RBC) Count 3.97 10x6/uL (3.90-5.03); White Blood Cell (WBC) Count 8.9 10x3/uL (3.5-10.5)
[2022-11-25 23:46] LABS: ALT (SGPT) 35 U/L (8-55); AST (SGOT) 32 U/L (5-34); Albumin 4.4 g/dL (3.5-5.0); Alkaline Phosphatase 61 U/L (40-110); Anion Gap 14 mmol/L (10-20); BUN (Urea Nitrogen) 17 mg/dL (7.0-18.7); Bilirubin, Total 0.4 mg/dL (0.2-1.2); Calc. Creatinine Clearance 0 mL/min (70-130); Carbon Dioxide 23 mmol/L (22-29); Chloride 107 mmol/L (98-107); Estimated GFR 113; Globulin 3.5 g/dL (2.4-3.5); Glucose 111 mg/dL (70-105); Lipase 21 U/L (8-78); Potassium 3.4 mmol/L (3.5-5.1); Protein, Total 7.9 g/dL (6.0-8.3); Sodium 141 mmol/L (136-145)
== END 2022-11-26 01:30 | disposition home or self-care (01) ==
LOC: CSHERS 22:05
DX: K50.90 Crohn's disease, unspecified, without complications (principal)
CPT/HCPCS: 74018; 80053; 83690; 85025; 96372; J1200; J1630; J2060

== ENCOUNTER 2022-12-25 15:10 | Observation (INO) | payer OTHER ==
[2022-12-25] MEDS ORDERED: diphenhydrAMINE 50 MG/ML VIAL ONE (16:29)
[2022-12-25] MEDS ORDERED: Promethazine HCl 25 MG in Sodium Chloride 0.9% 50 ML IVPB SCH (16:30)
[2022-12-25] MEDS ORDERED: Haloperidol Lactate 5 MG/ML VIAL ONE (16:31)
[2022-12-25 16:55] LABS: #Basophils 0.1 10x3/uL (0.0-0.2); #Eosinphils 0.1 10x3/uL (0.0-0.5); #Monocytes 0.7 10x3/uL (0.0-1.1); #Neutrophils 6.2 10x3/uL (1.5-8.4); %Basophils 0.7 % (0.0-2.0); %Eosinophils 1.1 % (0.0-6.0); %Monocytes 7.9 % (0.0-10.0); %Neutrophils 67.8 % (40.0-75.0); Hematocrit 41.5 % (34.9-44.5); Hemoglobin 13.5 g/dL (12.0-15.5); Mean Corpuscular HGB CONC 32.5 g/dL (32.0-36.0); Mean Corpuscular Volume 86.1 fl (81.6-98.3); Mean Platelet Volume 8.5 fl (7.4-10.4); Platelet Count 378 10x3/uL (150-450); RBC Distribution Width 14.7 % (11.5-14.5); Red Blood Cell (RBC) Count 4.82 10x6/uL (3.90-5.03); White Blood Cell (WBC) Count 9.1 10x3/uL (3.5-10.5)
[2022-12-25 17:11] LABS: ALT (SGPT) 17 U/L (8-55); AST (SGOT) 17 U/L (5-34); Albumin 3.9 g/dL (3.5-5.0); Alkaline Phosphatase 43 U/L (40-110); Anion Gap 15 mmol/L (10-20); BUN (Urea Nitrogen) 10 mg/dL (7.0-18.7); Bilirubin, Total 0.3 mg/dL (0.2-1.2); Calc. Creatinine Clearance 0 mL/min (70-130); Calcium 9.2 mg/dL (7.8-10.44); Carbon Dioxide 23 mmol/L (22-29); Chloride 104 mmol/L (98-107); Estimated GFR 95; Globulin 2.9 g/dL (2.4-3.5); Glucose 94 mg/dL (70-105); Potassium 3.3 mmol/L (3.5-5.1); Protein, Total 6.8 g/dL (6.0-8.3); Sodium 139 mmol/L (136-145)
[2022-12-25 17:12] LABS: BHCG - Serum Negative (NEGATIVE); Pregs Control Background? CLEAR/WHITE (CLR/WHITE); Pregs Control Bar Appear? YES (CONTROL BAR)
[2022-12-25] MEDS ORDERED: Morphine 2 MG/ML VIAL ONE (17:16)
[2022-12-25] MEDS ORDERED: Morphine 4 MG/ML VIAL ONE ×2 (17:17→18:52)
[2022-12-25 18:27] LABS: Bilirubin Neg (Negative); Blood, Urine 10 (Negative); Clarity Clear (Clear); Glucose, Urine (Dipstick) Normal (Negative); Ketone, Urine 15 mg/dL (Negative); Leukocyte Negative (Negative); Nitrite Negative (Negative); Protein, Urine (Dipstick) 15 mg/dl (Neg-Trace); Urobilinogen Normal mg/dL (Less than 2)
[2022-12-25 18:36] LABS: Bacteria/HPF 1+ HPF (None Seen); CAUTI Indications for Culture Pelvic or flank pain; RBC/HPF 0-3 HPF (0-3); Squamous Epithelial 0-3 HPF (0-3); WBC/HPF 0-3 HPF (0-3)
[2022-12-25 18:38] LABS: Urine Culture Reflex No No
[2022-12-25] MEDS ORDERED: HYDROmorphone 0.5 MG/0.5 ML SYRINGE ONE (20:47)
[2022-12-25] MEDS ORDERED: Acetylcysteine 20% (200mg/mL) 15,000 MG in Dextrose 5% in Water 125 ML IVPB SCH (23:00)
[2022-12-25 23:05] LABS: Amphetamine Not Detected (NotDetected); Barbiturates Screen Not Detected (NotDetected); Benzodiazepine Screen Not Detected (NotDetected); Cocaine Metabolite Screen Not Detected (NotDetected); Methadone Not Detected (NotDetected); Methamphetamine Not Detected (NotDetected); Opiate Screen Detected (NotDetected); Oxycodone Screen Not Detected (NotDetected); Phencyclidine (PCP) Not Detected (NotDetected); THC/Cannabinoid Screen Detected (NotDetected); Tricyclic Screen Detected (NotDetected)
[2022-12-25 23:08] LABS: PTT 23.8 sec (22.0-33.0); Prothrombin Time 10.9 sec (9.5-12.1)
[2022-12-25 23:12] LABS: Acetaminophen Less than 10 mcg/mL (10.0-30.0); Alcohol Less than 10.0 mg/dL (Less than 10); Magnesium 1.5 mg/dL (1.6-2.6); Salicylate Less than 8.0 mg/dL (15.0-30.0)
[2022-12-25] MEDS ORDERED: Calcium Carbonate 500 MG ChewTAB PO PRN (23:17)
[2022-12-25] MEDS ORDERED: Ondansetron PF 4 MG/2 ML Vial IVP PRN (23:17)
[2022-12-25] MEDS ORDERED: Senokot S 8.6-50 MG TAB PO PRN (23:17)
[2022-12-25] MEDS ORDERED: Pantoprazole 40 MG VIAL IVP SCH (23:30)
[2022-12-25] MEDS ORDERED: Magnesium 2 GM/50 ML(in water) 2 GM in Premix Bag 1 BAG IVPB SCH (23:30)
[2022-12-25] MEDS ORDERED: traMADol HCl 50 MG TAB ONE (23:34)
[2022-12-25] MEDS ORDERED: Ondansetron PF 4 MG/2 ML Vial ONE (23:42)
[2022-12-25 23:44] LABS: ALT (SGPT) 13 U/L (8-55); AST (SGOT) 13 U/L (5-34); Albumin 3.2 g/dL (3.5-5.0); Alkaline Phosphatase 34 U/L (40-110); Anion Gap 12 mmol/L (10-20); BUN (Urea Nitrogen) 7 mg/dL (7.0-18.7); Bilirubin, Total 0.3 mg/dL (0.2-1.2); Calc. Creatinine Clearance 0 mL/min (70-130); Calcium 7.7 mg/dL (7.8-10.44); Carbon Dioxide 21 mmol/L (22-29); Chloride 110 mmol/L (98-107); Estimated GFR 112; Globulin 2.2 g/dL (2.4-3.5); Glucose 84 mg/dL (70-105); Lipase 35 U/L (8-78); Potassium 3.4 mmol/L (3.5-5.1); Protein, Total 5.4 g/dL (6.0-8.3); Sodium 140 mmol/L (136-145)
[2022-12-26] MEDS ORDERED: Acetylcysteine 20% (200mg/mL) 5,000 MG in Dextrose 5% in Water 475 ML IVPB SCH ×2 (00:30→04:00)
[2022-12-26] MEDS ORDERED: Scopolamine 1.5 mg/72 hour Patch TOP SCH (01:15)
[2022-12-26] MEDS: ALPRAZolam 0.25 MG TAB PO PRN ×3 (01:47→20:43)
[2022-12-26 01:59] VITALS: BMI 29.7
[2022-12-26] MEDS: Potassium Chloride 20 MEQ in Premix Bag 1 BAG IVPB SCH ×2 (02:43→03:49)
[2022-12-26] MEDS ORDERED: Potassium Chloride 20 MEQ TAB PO SCH (03:45)
[2022-12-26] MEDS: Dextrose 5 %-0.45 % NaCl 1,000 ML IV SCH ×3 (03:51→19:00)
[2022-12-26] MEDS ORDERED: Acetylcysteine 20% (200mg/mL) 10,000 MG in Dextrose 5% in Water 950 ML IVPB SCH ×2 (04:30→08:00)
[2022-12-26 05:44] LABS: INR-International Normal Ratio 1.1; PTT 23.1 sec (22.0-33.0); Prothrombin Time 11.4 sec (9.5-12.1)
[2022-12-26 05:50] LABS: #Basophils 0.1 10x3/uL (0.0-0.2); #Eosinphils 0.2 10x3/uL (0.0-0.5); #Monocytes 0.7 10x3/uL (0.0-1.1); #Neutrophils 7.9 10x3/uL (1.5-8.4); %Basophils 0.5 % (0.0-2.0); %Eosinophils 1.4 % (0.0-6.0); %Lymphocytes 20.2 % (18.0-47.0); %Monocytes 6.2 % (0.0-10.0); %Neutrophils 71.3 % (40.0-75.0); Hematocrit 34.6 % (34.9-44.5); Hemoglobin 11.2 g/dL (12.0-15.5); Mean Corpuscular HGB CONC 32.4 g/dL (32.0-36.0); Mean Corpuscular Hemoglobin 28.2 pg (27.0-33.0); Mean Corpuscular Volume 87.2 fl (81.6-98.3); Mean Platelet Volume 8.6 fl (7.4-10.4); Platelet Count 290 10x3/uL (150-450); Red Blood Cell (RBC) Count 3.97 10x6/uL (3.90-5.03)
[2022-12-26 06:12] LABS: ALT (SGPT) 14 U/L (8-55); AST (SGOT) 13 U/L (5-34); Acetaminophen Less than 10 mcg/mL (10.0-30.0); Albumin 3.1 g/dL (3.5-5.0); Alkaline Phosphatase 33 U/L (40-110); Anion Gap 14 mmol/L (10-20); BUN (Urea Nitrogen) 5 mg/dL (7.0-18.7); Bilirubin, Total 0.2 mg/dL (0.2-1.2); Calc. Creatinine Clearance 163 mL/min (70-130); Calcium 7.9 mg/dL (7.8-10.44); Carbon Dioxide 20 mmol/L (22-29); Chloride 106 mmol/L (98-107); Estimated GFR 113; Globulin 2.2 g/dL (2.4-3.5); Glucose 108 mg/dL (70-105); Potassium 2.8 mmol/L (3.5-5.1); Protein, Total 5.3 g/dL (6.0-8.3); Sodium 137 mmol/L (136-145)
[2022-12-26 06:35] LABS: CRP (Inflammatory) Less than 0.50 mg/dL (= or < 0.5); Magnesium 1.9 mg/dL (1.6-2.6)
[2022-12-26] MEDS: traMADol HCl 50 MG TAB PO PRN ×3 (06:40→20:43)
[2022-12-26] MEDS: Potassium Chloride 20 MEQ TAB PO SCH ×2 (06:41→08:36)
[2022-12-26] MEDS: Mirabegron ER 25 MG ER.TAB PO SCH (08:35)
[2022-12-26] MEDS: Pantoprazole 40 MG VIAL IVP SCH (08:35)
[2022-12-26] MEDS ORDERED: PENTOSAN POLYSULFATE SODIUM 100 MG PO SCH (09:00)
[2022-12-26 12:17] LABS: ALT (SGPT) 16 U/L (8-55); AST (SGOT) 17 U/L (5-34); Albumin 3.3 g/dL (3.5-5.0); Alkaline Phosphatase 35 U/L (40-110); Anion Gap 16 mmol/L (10-20); BUN (Urea Nitrogen) Less than 4 mg/dL (7.0-18.7); Bilirubin, Total 0.3 mg/dL (0.2-1.2); Calc. Creatinine Clearance 166 mL/min (70-130); Calcium 7.9 mg/dL (7.8-10.44); Carbon Dioxide 16 mmol/L (22-29); Chloride 110 mmol/L (98-107); Estimated GFR 113; Globulin 2.5 g/dL (2.4-3.5); Glucose 111 mg/dL (70-105); Potassium 3.9 mmol/L (3.5-5.1); Protein, Total 5.8 g/dL (6.0-8.3); Sodium 138 mmol/L (136-145)
[2022-12-26] MEDS ORDERED: Promethazine HCl 12.5 MG in Sodium Chloride 0.9% 50 ML IVPB PRN (14:15)
[2022-12-27 02:05] VITALS: TEMP 98.2
[2022-12-27 03:21] LABS: PTT 23.8 sec (22.0-33.0)
[2022-12-27 03:56] LABS: ALT (SGPT) 18 U/L (8-55); AST (SGOT) 20 U/L (5-34); Acetaminophen Less than 10 mcg/mL (10.0-30.0); Albumin 3.2 g/dL (3.5-5.0); Alkaline Phosphatase 34 U/L (40-110); Bilirubin, Direct 0.1 mg/dL (0.1-0.3); Bilirubin, Total 0.3 mg/dL (0.2-1.2); Protein, Total 5.6 g/dL (6.0-8.3)
[2022-12-27] MEDS ORDERED: Loperamide HCl 2 MG CAP PO SCH (05:30)
[2022-12-27] MEDS: traMADol HCl 50 MG TAB PO PRN (07:35)
[2022-12-27] MEDS: ALPRAZolam 0.25 MG TAB PO PRN (07:36)
[2022-12-27 09:36] LABS: #Basophils 0.1 10x3/uL (0.0-0.2); #Eosinphils 0.2 10x3/uL (0.0-0.5); #Monocytes 0.5 10x3/uL (0.0-1.1); #Neutrophils 2.9 10x3/uL (1.5-8.4); %Basophils 1.2 % (0.0-2.0); %Eosinophils 3.4 % (0.0-6.0); %Lymphocytes 36.4 % (18.0-47.0); %Monocytes 8.7 % (0.0-10.0); Hematocrit 42.6 % (34.9-44.5); Mean Corpuscular HGB CONC 30.5 g/dL (32.0-36.0); Mean Corpuscular Hemoglobin 28.3 pg (27.0-33.0); Mean Corpuscular Volume 92.6 fl (81.6-98.3); Mean Platelet Volume 9.8 fl (7.4-10.4); Platelet Count 208 10x3/uL (150-450); RBC Distribution Width 15.3 % (11.5-14.5); White Blood Cell (WBC) Count 5.9 10x3/uL (3.5-10.5)
[2022-12-27] MEDS: Pantoprazole 40 MG VIAL IVP SCH (09:54)
[2022-12-27] MEDS: Mirabegron ER 25 MG ER.TAB PO SCH (09:54)
[2022-12-27] MEDS ORDERED: LevoFLOXacin 750 mg/D5W 750 MG in Premix Bag 1 BAG IVPB SCH (10:00)
[2022-12-27 20:43] VITALS: BP 120/68
[2022-12-29 02:12] LABS: Adenovirus F 40-41 Not Detected (Not Detected); Astrovirus Not Detected (Not Detected); C. difficile toxin A+B Not Detected (Not Detected); Campylobacter by PCR Not Detected (Not Detected); Cryptosporidium Not Detected (Not Detected); Cyclospora cayetanensis Not Detected (Not Detected); Entamoeba histolytica Not Detected (Not Detected); Enteroaggregative E. coli Not Detected (Not Detected); Enteropathogenic E. coli Not Detected (Not Detected); Enterotoxigenic E. coli Not Detected (Not Detected); Giardia lamblia Not Detected (Not Detected); Norovirus GI-GII Not Detected (Not Detected); Plesiomonas shigelloides Not Detected (Not Detected); Rotavirus A Not Detected (Not Detected); Salmonella Not Detected (Not Detected); Sapovirus Not Detected (Not Detected); Shiga-toxin-producing E coli Not Detected (Not Detected); Shigella/Enteroinvasive E coli Not Detected (Not Detected); Vibrio Not Detected (Not Detected); Vibrio cholerae Not Detected (Not Detected); Yersinia enterocolitica Not Detected (Not Detected)
== END 2022-12-27 14:55 | disposition home or self-care (01) ==
LOC: CSHERS 15:10 → CSHTELE 23:17 → INTOOBSV 12-26 00:42 → CSHTELE 12-26 00:42 → UNDOADMOB 12-26 00:42
PROVIDERS: ADMIT Student in an Organized Health Care Education/Training Program; ATTEND Internal Medicine
DX: T39.1X1A Poisoning by 4-Aminophenol derivatives, accidental (unintentional), initial encounter (principal); R10.9 Unspecified abdominal pain; N30.10 Interstitial cystitis (chronic) without hematuria; G89.29 Other chronic pain; E87.6 Hypokalemia; E83.42 Hypomagnesemia; F32.A Depression, unspecified; F41.9 Anxiety disorder, unspecified; M79.7 Fibromyalgia; F12.10 Cannabis abuse, uncomplicated; Z90.89 Acquired absence of other organs; Z90.49 Acquired absence of other specified parts of digestive tract; Z88.6 Allergy status to analgesic agent; Z88.1 Allergy status to other antibiotic agents; Z79.899 Other long term (current) drug therapy
CPT/HCPCS: 36415; 74177; 80053; 80076; 80143; 80306; 80307; 81001; 83605; 83690; 83735; 84703; 85025; 85610; 85730; 86140; 87077; 87086; 87186; 87324; 87449; 87507; 93005; 93010; 96374; 96375; 96376; C9113; G0378; J0132; J1170; J1200; J1630; J1956; J2270; J2272; J2405; J2550; J3475; J3480; J7042; J7070; Q9967